=== PATIENT | male | born 1975 | race African-American/Black ===

== ENCOUNTER 2022-06-19 10:52 | Emergency (ER) | payer OTHER ==
[2022-06-19] MEDS ORDERED: Dexamethasone 10 MG/ML VIAL ONE (12:16)
[2022-06-19] MEDS ORDERED: Ketorolac Tromethamine 30 MG/ML VIAL ONE (12:16)
[2022-06-19] MEDS ORDERED: Ondansetron ODT 4 MG TAB ONE (12:21)
== END 2022-06-19 12:48 | disposition home or self-care (01) ==
LOC: CSHERS 10:52
DX: M25.562 Pain in left knee (principal)
CPT/HCPCS: 71045; 96372; J1100; J1885; Q0162